=== PATIENT | female | born 1995 | race Caucasian/White ===

== ENCOUNTER 2021-10-07 08:12 | Inpatient (IN) ==
[2021-10-07] MEDS ORDERED: Naloxone 0.4 MG/ML INJ IVP PRN (08:19)
[2021-10-07] MEDS ORDERED: Metoclopramide 10 MG/2 ML VIAL IVP PRN (08:19)
[2021-10-07] MEDS ORDERED: *HR* Nalbuphine 10 MG/ML AMPUL IV PRN (08:19)
[2021-10-07] MEDS ORDERED: Ondansetron 4 MG/2 ML VIAL IVP PRN (08:19)
[2021-10-07] MEDS ORDERED: Famotidine 20 MG/2 ML VIAL IVP PRN (08:19)
[2021-10-07] MEDS ORDERED: miSOPROStoL 25 MCG TABLET PO ONE (08:21)
[2021-10-07 09:03] LABS: Basophils % 0.3 %; Eosinophils % 0.4 %; Hematocrit 31.8 % (35.3-44.9); Hemoglobin 10.7 g/dL (11.5-15.4); Immature Granulocytes % 0.3 % (0-4); Lymphocytes # 1.7 K/mcL (0.6-4.6); Lymphocytes % 15.9 %; Mean Corpuscular HGB Conc 33.6 g/dL (31.6-35.5); Mean Corpuscular Hemoglobin 27.4 pg (28.0-33.3); Mean Corpuscular Volume 81.3 fL (83.0-100.0); Mean Platelet Volume 10.8 fL (9.4-12.4); Monocytes # 0.7 K/mcL (0.0-1.3); Monocytes % 6.5 %; Neutrophils # 8.3 K/mcL (1.6-8.9); Platelet Count 272 K/mcL (140-400); Red Blood Count 3.91 M/mcL (3.82-4.97); Red Cell Distribution Width 12.6 % (11.5-14.5); Segmented Neutrophils % 76.6 %; White Blood Count 10.8 K/mcL (4.3-11.1)
[2021-10-07 09:07] LABS: Amphetamine Screen,Urine Negative ng/mL (Cutoff=1000); Barbiturate Screen,Urine Negative ng/mL (Cutoff=200); Benzodiazepines Screen,Urine Negative ng/mL (Cutoff=200); Cannabinoid Screen,Urine Negative ng/mL (Cutoff = 50); Cocaine Screen,Urine Negative ng/mL (Cutoff= 300); Opiate Screen,Urine Negative ng/mL (Cutoff=300); Phencyclidine Screen,Urine Negative ng/mL (Cutoff=25)
[2021-10-07] MEDS: Ringers Solution, Lactated 1,000 ML IVC SCH ×3 (09:07→18:02)
[2021-10-07 09:32] LABS: Influenza A PCR Negative (Negative); Influenza B PCR Negative (Negative); Resp. Syncytial Virus PCR Negative (Negative)
[2021-10-07 09:36] LABS: SARS-CoV-2 by PCR (In House) Negative (Negative)
[2021-10-07] MEDS ORDERED: EPHEDrine 50 MG/ML VIAL IVP PRN (09:51)
[2021-10-07] MEDS ORDERED: *HR* FentaNYL (PF) 100 MCG/2 ML VIAL EP ONE (09:51)
[2021-10-07] MEDS ORDERED: Oxytocin 30 UNIT/503 ML BAG IVC SCH (13:00)
[2021-10-07] MEDS ORDERED: *HR* FentaNYL (PF) 100 MCG/2 ML VIAL ONE ×2 (17:21→22:24)
[2021-10-07] MEDS ORDERED: Ropivacaine/PF 0.2% 20 ML VIAL ONE (17:21)
[2021-10-07] MEDS: Epidural Premix (fent/bupiv) 110 ML EP SCH ×2 (17:48→22:40)
[2021-10-07] MEDS ORDERED: *HR* Ropivacaine/PF 0.5% 20 ML VIAL ONE (21:33)
[2021-10-08] MEDS ORDERED: Ibuprofen 600 MG TABLET PO ONE (01:50)
[2021-10-08] MEDS ORDERED: *HR* OxyCODONE Immed Rel 5 MG TABLET PO PRN (04:43)
[2021-10-08] MEDS ORDERED: Benzocaine/Menthol 56 GM AEROSOL SPRAY TP PRN (04:43)
[2021-10-08] MEDS ORDERED: Lanolin 7 G OINT...G. TP PRN (04:43)
[2021-10-08] MEDS ORDERED: Oxytocin 30 UNIT/503 ML BAG IVC SCH (04:43)
[2021-10-08] MEDS ORDERED: Ondansetron ODT 4 MG TAB.RAPDIS SL PRN (04:43)
[2021-10-08] MEDS: Acetaminophen 325 MG TABLET PO SCH ×2 (05:11→17:51)
[2021-10-08] MEDS: Ibuprofen 600 MG TABLET PO SCH ×2 (05:12→17:51)
[2021-10-08] MEDS: Prenatal Vit/FA 1 EACH TABLET PO SCH (09:09)
[2021-10-08 16:11] VITALS: TEMP 98.1
[2021-10-08 18:38] VITALS: BP 117/80; O2SAT 97
[2021-10-09] MEDS: Acetaminophen 325 MG TABLET PO SCH ×2 (03:30→07:51)
[2021-10-09] MEDS: Ibuprofen 600 MG TABLET PO SCH ×2 (03:30→07:51)
[2021-10-09] MEDS: Prenatal Vit/FA 1 EACH TABLET PO SCH (07:53)
[2021-10-09 09:33] VITALS: PULSE 68
== END 2021-10-14 16:23 | disposition home or self-care (01) | DRG 807 ==
LOC: 1NENULAB 08:12 → 1NENUOBS 10-08 04:18
PROVIDERS: ADMIT Advanced Practice Midwife; ATTEND Advanced Practice Midwife